=== PATIENT | male | born 1955 | race African-American/Black ===

== ENCOUNTER 2018-03-10 11:33 | Emergency (ER) | payer MEDICARE, MEDICAID ==
[~2018-03-10] VITALS: Ht 177.8 cm; Wt 75.0 kg
[~2018-03-10 11:33] MED LIST: [UNRECOGNIZED DRUG - REMARK]
[2018-03-10] MEDS ORDERED: KETOROLAC 30MG/ML VIAL IM ONE (12:45)
[2018-03-11 13:30] VITALS: BP 133/74
== END 2018-03-11 14:08 | disposition home or self-care (01) ==
LOC: ER 12:12
DX: M79.604 Pain in right leg (principal); Z59.0 Homelessness; G89.29 Other chronic pain; Y92.480 Sidewalk as the place of occurrence of the external cause
CPT/HCPCS: 96372; 99283; J1885